=== PATIENT | female | born 1970 | race Caucasian/White ===

== ENCOUNTER 2017-12-21 13:23 | Emergency (ER) | payer MEDICARE, MEDICAID ==
[~2017-12-21] VITALS: Ht 162.6 cm; Wt 71.4 kg
[2017-12-21 13:38] VITALS: BP 148/91; Ht 162.6 cm; Wt 71.4 kg
[2017-12-21] MEDS ORDERED: BUSPAR 15 MG TA15 MG PO (13:44)
[2017-12-21] MEDS ORDERED: ZOLOFT100 MG PO (13:44)
[2017-12-21] MEDS ORDERED: ASPIRIN325 MG PO (13:45)
[2017-12-21] MEDS ORDERED: RAZADYNE ER8 MG PO (13:45)
[2017-12-21] MEDS ORDERED: LAMICTAL ODT200 MG PO (13:46)
[2017-12-21] MEDS ORDERED: CLONAZEPAM0.5 MG/TAB PO (13:46)
[2017-12-21] MEDS ORDERED: SYNTHROID25 MCG PO (13:47)
[2017-12-21] MEDS ORDERED: COREG 3.1253.125 MG PO (13:48)
[2017-12-21] MEDS ORDERED: ZANTAC150 MG PO (13:48)
[2017-12-21] MEDS ORDERED: ROBAXIN500 MG PO (15:27)
== END 2017-12-21 16:58 | disposition home or self-care (01) ==
LOC: D.ER 13:23
DX: S60.211A Contusion of right wrist, initial encounter (principal); V43.52XA Car driver injured in collision with other type car in traffic accident, initial encounter; Y93.89 Activity, other specified; Y92.410 Unspecified street and highway as the place of occurrence of the external cause; S16.1XXA Strain of muscle, fascia and tendon at neck level, initial encounter; S40.011A Contusion of right shoulder, initial encounter; E07.9 Disorder of thyroid, unspecified; K21.9 Gastro-esophageal reflux disease without esophagitis